=== PATIENT | female | born 1940 | race Caucasian/White ===

== ENCOUNTER → 2016-11-17 | Outpatient (CLI) | payer MEDICARE, OTHER ==
--- NOTE | 2016-11-17 15:55 | MRI ---
EXAM DESCRIPTION: MRI right shoulder without contrast CLINICAL HISTORY: Shoulder pain previous surgery for rotator cuff repair persistent limited range of motion difficulty lifting arm COMPARISON: None Available. TECHNIQUE: Noncontrast MR imaging right shoulder standard protocol FINDINGS: There is tendinosis of the subscapularis. There is medialization of the long head bicep without complete dislocation probable degree of bicep instability and transverse ligament injury. There is edema in this area. Moderate hypertrophic AC joint osteoarthrosis. Previous supraspinatus repair with metal artifact. There is thinning of the repaired supraspinatus with background tendinosis and granulation tissue indicating residual partial tear. No complete detachment or retraction however. There is mild subacromial and subdeltoid bursitis. Mild diffuse degenerative change of the superior labrum with fraying and minimal volume loss. Minimal inferior glenohumeral osteophyte formation as well. Tendinosis infraspinatus without detachment or retraction. No pronounced active adhesive capsulitis. There is generalized grade 1-2 fatty marbling of the rotator cuff muscle bellies symmetric. Type 3 acromial morphology. IMPRESSION: Thinning and fraying of the repaired supraspinatus tendon without complete detachment or retraction Subacromial and subdeltoid bursitis Medial biceps subluxation without complete dislocation suggesting bicep instability with edema along the transverse ligament Moderate hypertrophic AC joint osteoarthrosis with mild type 3 acromial morphology Chronic mild degenerative labral changes Generalized mild rotator cuff muscle fatty marbling without advanced asymmetric atrophy Electronically signed by: Osbaldo Farnsworth MD 11/17/2016 15:53
== END ==
LOC: MRI 12:39
PROVIDERS: ATTEND Nurse Practitioner Family
DX: M19.011 Primary osteoarthritis, right shoulder (principal); M75.51 Bursitis of right shoulder

== ENCOUNTER → 2016-11-25 | Outpatient (CLI) | payer MEDICARE, OTHER | LOC: GMAM 14:43 | PROVIDERS: ATTEND Family Medicine | DX: R11.2 Nausea with vomiting, unspecified (principal) ==

== ENCOUNTER → 2017-03-14 | Outpatient (CLI) | payer MEDICARE, OTHER ==
--- NOTE | 2017-03-14 10:07 | MAM ---
History: Well woman exam. Date of exam: 03/14/2017 Services provided: Bilateral full field digital screening mammography. CAD, the images were reviewed with R2 computer aided detection. FINDINGS: Glandular tissue is scattered glandular pattern. Comparison with 2013 exam. No dominant mass, architectural distortion or clustered microcalcification. IMPRESSION: Benign exam Recommendation: Routine annual mammography BIRAD CATEGORY: 2 BENIGN Electronically signed by: Xiomara Altamirano MD 03/14/2017 10:07 AM CDT
== END ==
LOC: MAMMO 09:20
PROVIDERS: ATTEND Family Medicine
DX: Z12.31 Encounter for screening mammogram for malignant neoplasm of breast (principal)

== ENCOUNTER → 2017-04-26 | Outpatient (CLI) | payer MEDICARE, OTHER | END | disposition home or self-care (01) | LOC: GMAM 14:22 | PROVIDERS: ATTEND Family Medicine | DX: R10.84 Generalized abdominal pain (principal) ==

== ENCOUNTER → 2017-05-02 | Outpatient (CLI) | payer MEDICARE, OTHER | END | disposition home or self-care (01) | LOC: LAB.O 12:09 | PROVIDERS: ATTEND Family Medicine | DX: R19.7 Diarrhea, unspecified (principal); R30.9 Painful micturition, unspecified ==

== ENCOUNTER → 2017-05-16 | Outpatient (CLI) | payer MEDICARE, OTHER | END | disposition home or self-care (01) | LOC: LAB.O 08:23 | PROVIDERS: ATTEND Nurse Practitioner Family | DX: K59.01 Slow transit constipation (principal) ==

== ENCOUNTER → 2017-05-19 | Outpatient (CLI) | payer MEDICARE, OTHER ==
--- NOTE | 2017-05-20 12:29 | CT ---
EXAM DESCRIPTION: Abdoment/Pelvis w/o Contrast CLINICAL HISTORY: CONSTIPATION COMPARISON: April 16, 2015 TECHNIQUE: CT of the abdomen and Pelvis was performed without IV contrast. This exam was performed according to our departmental dose-optimization program, which includes automated exposure control, adjustment of the mA and/or kV according to patient size and/or use of iterative reconstruction technique. FINDINGS: There is a 2 or 3 mm noncalcified nodule in the right lung base, stable from April,. The lung bases are otherwise unremarkable. No pneumoperitoneum, ascites or adenopathy. The gallbladder is surgically absent. There are mural calcifications in the abdominal aorta without aneurysm. The gallbladder is surgically absent. The liver, spleen, pancreas, adrenals and kidneys are unremarkable for noncontrast technique. No dilated small bowel loops. No bladder wall thickening. The uterus and ovaries are not identified, please correlate with surgical history. There is a small amount of stool and gas scattered throughout the colon. No colonic wall thickening or pericolonic inflammation. A surgical clip in the right lower quadrant is likely related to prior appendectomy. No concerning bone lesion. IMPRESSION: Negative exam. Small amount of stool and gas scattered throughout the colon, but no colonic wall thickening, pericolonic inflammation or other abnormality in the abdomen or pelvis to explain patient's symptoms. Electronically signed by: Jerel Luciano MD 05/20/2017 12:28 PM CDT Workstation: [id number]
== END ==
LOC: CT 10:07
PROVIDERS: ATTEND Nurse Practitioner Family
DX: K59.01 Slow transit constipation (principal)

== ENCOUNTER → 2017-05-23 | Outpatient (CLI) | payer MEDICARE, OTHER ==
--- NOTE | 2017-05-24 07:29 | US ---
EXAM DESCRIPTION: Thyroid CLINICAL HISTORY: 76 years Female, ABNORMAL LAB TEST FINDINGS WITHOUT DIAGNOSIS COMPARISON: None. FINDINGS: Thyroid sonography without prior studies for comparison demonstrates a normal size thyroid gland with the right lobe measuring 4.0 x 1.4 x 1.3 cm and the left lobe measuring 3.9 x 1.5 x 1.8 cm. The isthmus is 3 mm in thickness. On the right, there are three small thyroid nodules including a complex wider than tall 10 x 9 x 6 mm nodule in the upper pole anteriorly and laterally. Medially a hypoechoic wider than tall 7 mm nodule near the junction with the isthmus is noted and a third small probable cyst involving the lower pole posteriorly and medially 5 mm in size is present. On the left there are two small thyroid nodules including a hypoechoic slightly heterogeneous rounded 6 mm nodule in the mid thyroid posteriorly and slightly medially. There is also an isoechoic 11 x 8 x 6 mm nodule that is circumscribed and wider than tall involving the mid thyroid more anteriorly. There is questionably a third small hypoechoic nodule anteriorly in the lower pole measuring 7 x 7 x 4 mm and benign in appearance. IMPRESSION: Multinodular thyroid with multiple small centimeter and subcentimeter hypoechoic nodules and heterogeneous nodules bilaterally. The largest nodule on the left is in the mid thyroid and is 11 mm in maximal diameter and wider than tall and the largest nodule on the right is in the upper pole and complex measuring 10 mm in maximal diameter. One year sonographic follow-up to reconfirm stability of these nodules is recommended. Electronically signed by: Yusef Godfrey MD 05/24/2017 7:27 AM CDT
== END ==
LOC: US 11:06
PROVIDERS: ATTEND Family Medicine
DX: R68.89 Other general symptoms and signs (principal); E04.9 Nontoxic goiter, unspecified

== ENCOUNTER → 2017-06-20 | Outpatient (CLI) | payer MEDICARE, OTHER | END | disposition home or self-care (01) | LOC: GMAM 14:09 | PROVIDERS: ATTEND Family Medicine | DX: R10.9 Unspecified abdominal pain (principal); E04.2 Nontoxic multinodular goiter ==

== ENCOUNTER → 2017-07-06 | Outpatient (CLI) | payer MEDICARE, OTHER ==
--- NOTE | 2017-07-06 16:06 | US ---
PROCEDURE: Venous,Lower Extremity RT CLINICAL HISTORY and INDICATION: Right lower limb edema COMPARISON: None. TECHNIQUE: Bailey scale imaging with duplex interrogation of the right lower extremity venous system was performed and multiple static images were obtained. FINDINGS: Utilizing compression and augmentation, there is no deep venous thrombus in the common femoral, superficial femoral or popliteal veins. The posterior tibial and deep peroneal veins are patent and compressible. . The greater saphenous vein at the saphenofemoral junction is patent and compressible. There is no visualization of any subcutaneous fluid collections. There is no visualization of any fluid collections in the right popliteal fossa. There is no evidence of reactive or pathological lymphadenopathy in the evaluated right lower extremity. IMPRESSION: No deep venous thrombosis of the right lower extremity. Location of Interpretation: [id number] Electronically signed by: Johnson West MD 07/06/2017 4:05 PM CDT Workstation: [id number]
== END | disposition home or self-care (01) ==
LOC: US 13:50
PROVIDERS: ATTEND Family Medicine
DX: R60.0 Localized edema (principal)

== ENCOUNTER → 2017-07-25 | Outpatient (CLI) | payer MEDICARE, OTHER ==
--- NOTE | 2017-07-26 16:49 | CT ---
EXAM DESCRIPTION: Abdomen/Pelvis w/wo Contrast CLINICAL HISTORY: ABD PAIN COMPARISON: CT abdomen/pelvis 05/19/2017 and 04/16/2015 TECHNIQUE: CT of the abdomen and pelvis was performed before and after intravenous contrast. Multiple axial images and multiplanar reconstructions were generated. This exam was performed according to our departmental dose-optimization program, which includes automated exposure control, adjustment of the mA and/or kV according to patient size and/or use of iterative reconstruction technique. FINDINGS: Lung bases: The visualized lung bases are clear. Solid organs: Cholecystectomy clips are demonstrated. A 1.2 cm splenic hypodensity is unchanged since 2014. Numerous bilateral renal hypodensities measuring 5 mm or less are again demonstrated. The liver, pancreas, and adrenal glands are unremarkable. Gastrointestinal: The stomach, small intestine, and large intestine are normal. The right lower quadrant surgical clip is present, possibly from prior appendectomy. No free fluid or free air. Vascular: Moderate atherosclerotic plaque in the abdominal aorta and its major branches. Lymph nodes: No pathologically enlarged lymph nodes are present by CT size criteria. Musculoskeletal and soft tissues: The bones are demineralized predominantly along the endplates. Stable lucency in the L2 vertebral body, most likely a hemangioma. Urinary bladder and pelvic organs: The urinary bladder is normal. The uterus is surgically absent. IMPRESSION: 1. No acute abdominal or pelvic CT findings. 2. Moderate atherosclerosis. 3. Osteopenia. Recommend correlation with DEXA scan. 4. Other chronic findings as above. Electronically signed by: Yobani Presley MD 07/26/2017 4:48 PM CDT
== END | disposition home or self-care (01) ==
LOC: CT 08:04
PROVIDERS: ATTEND Family Medicine
DX: R10.9 Unspecified abdominal pain (principal); R60.0 Localized edema

== ENCOUNTER 2017-10-01 05:48 | Emergency (ER) | payer MEDICARE, OTHER ==
[2017-10-01 06:15] VITALS: TEMP 97.9
[2017-10-01] MEDS ORDERED: ONDANSETRON INJ 4 MG/2 ML VIAL IV ONE (06:22)
[2017-10-01] MEDS ORDERED: SODIUM CHLORIDE 0.9% 1000ML 1,000 ML IVS ONE (06:22)
--- NOTE | 2017-10-01 06:25 | ED.PDOC ---
History of Present Illness - General Information Source: patient, RN notes reviewed, Vital Signs reviewed Exam Limitations: no limitations - History of Present Illness Initial Comments: Patient presents to ER with c/o nausea and vomiting for 2 days. She is concerned because she has not been able to keep her blood pressure medications down. + HARRY, + subjective fever. She has had abdominal pain for the past 4 months , no worsening or new pain with current symptoms. She has had diarrhea for 4 months but changed her medications and that has improved. Abdominal Pain Onset Location: generalized abdomen Pain Radiation: no radiation Quality: mild Timing/Duration: days - 2 Improving Factors: nothing Worsening Factors: nothing Associated Symptoms: diarrhea, fever/chills, fatigue, headache, nausea/vomiting <Veronika Garcia - Last Filed: 10/01/17 06:53> <Manny Price - Last Filed: 10/01/17 08:37> - General Chief Complaint: GI Problem Stated Complaint: nausea vomiting Time Seen by Provider: 10/01/17 05:50 Review of Systems - Review of Systems Constitutional: States: chills, fever, malaise EENTM: States: other - Red throat Respiratory: States: no symptoms reported Cardiology: States: no symptoms reported Gastrointestinal/Abdominal: States: see HPI, abdominal pain, diarrhea, nausea, vomiting Musculoskeletal: States: no symptoms reported Skin: States: no symptoms reported Neurological: States: headache All other Systems: No Change from Baseline <Veronika Garcia - Last Filed: 10/01/17 06:53> Past Medical History (General) - Patient Medical History Hx Seizures: No Hx Stroke: Yes Hx Dementia: No Hx Asthma: No Hx of COPD: No Hx Cardiac Disorders: Yes Hx Congestive Heart Failure: Yes Hx Pacemaker: No Hx Hypertension: Yes Hx Thyroid Disease: Yes Hx Diabetes: Yes Hx Gastroesophageal Reflux: Yes Hx Renal Disease: No Hx Cancer: No Hx of HIV: No Hx Hepatitis C: No Hx MRSA: No Surgical History: cholecystectomy, Hysterectomy, other - Vaccination History Hx Tetanus, Diphtheria Vaccination: No Hx Influenza Vaccination: No Hx Pneumococcal Vaccination: No - Social History Hx Tobacco Use: No Hx Alcohol Use: No Hx Substance Use: No Hx Substance Use Treatment: No Hx Depression: No - Female History Patient is a Female of Child Bearing Age (10 -59 yrs old): No - Triage Comment ED Triage Comment: Pt states has N/V x 2 days--No diarrhea---Has sinus problems --sore throat <Veronika Garcia - Last Filed: 10/01/17 06:53> Family Medical History - Family History Mother Family History: Unknown Living Status: Hx Family Stroke: Yes Father Family History: Unknown Living Status: Hx Family Congestive Heart Failure: Yes Hx Cardiac Disease: Yes <Veronika Garcia - Last Filed: 10/01/17 06:53> Physical Exam - Physical Exam General Appearance: Alert, No apparent distress, Ill Appearing, Well Developed, Well Groomed, Well Nourished Eyes, Ears, Nose, Throat Exam: pharyngeal erythema - mild, PND, other - Dry tongue and mucous membranes Neck: non-tender, full range of motion, supple, normal inspection Respiratory: lungs clear, normal breath sounds, no respiratory distress, no accessory muscle use Cardiovascular/Chest: regular rate, rhythm, no gallop, no murmur Gastrointestinal/Abdominal: soft, no organomegaly, abnormal bowel sounds - hyperactive, tenderness - bilateral lower quadrants w/o guarding or rebound Rectal Exam: deferred Back Exam: normal inspection, no CVA tenderness Extremity: normal range of motion, normal inspection Neurologic: alert, normal mood/affect, oriented x 3 Skin Exam: normal color, warm/dry Comments: Vital Signs 10/01/17 06:06 Temperature 97.9 F Pulse Rate [Lt 76 arm] Respiratory 20 Rate Blood Pressure 161/85 [Lt arm] O2 Sat by Pulse 93 L Oximetry <Veronika Garcia - Last Filed: 10/01/17 06:53> Progress - Progress Progress: 10/01/17 06:[address] Price @ 07:00 - Results/Orders Results/Orders: Laboratory Tests 10/01/17 10/01/17 06:32 06:32 WBC 9.9 RBC 4.39 Hgb 13.4 Hct 38.7 MCV 88.0 MCH 30.5 MCHC 34.6 RDW 12.3 Plt Count 186 MPV 8.5 Absolute Neuts (auto) 8.50 H Absolute Lymphs (auto) 0.90 L Absolute Monos (auto) 0.40 Absolute Eos (auto) 0.10 Absolute Basos (auto) 0.00 Neutrophils % 85.8 H Lymphocytes % 8.9 L Monocytes % 4.3 Eosinophils % 0.7 L Basophils % 0.3 Sodium 135 Potassium 3.7 Chloride 100 L Carbon Dioxide 26 Anion Gap 12.7 BUN 12 Creatinine 0.66 BUN/Creatinine Ratio 18.2 Random Glucose 213 H Serum Osmolality 276.2 Calcium 9.1 Total Bilirubin 1.2 H AST 81 H ALT 108 H Alkaline Phosphatase 94 Serum Total Protein 6.9 Albumin 3.9 Globulin 3.0 Albumin/Globulin Ratio 1.3 <Veronika Garcia - Last Filed: 10/01/17 06:53> Departure <Veronika Garcia - Last Filed: 10/01/17 06:53> - Departure Diet: bland diet, diabetic diet Activity: increase activity as tolerated <Manny Price - Last Filed: 10/01/17 08:37> - Departure Clinical Impression: Gastroenteritis, Hepatitis Disposition: Discharge to Home or Self Care Condition: Good Departure Forms: ED Discharge - Pt. Copy, Patient Portal Self Enrollment Instructions: DI for Gastroesophageal Reflux Disease (GERD) Referrals: Yusef Price MD [Primary Care Provider] - 1-5 Days Prescriptions: Ondansetron [Zofran Odt] 4 mg PO Q4H PRN #10 tab PRN Reason: Vomiting Sucralfate Suspension [Carafate Suspension] 1 gm PO TID #30 gm Home Medications: Ambulatory Orders Aspirin [Aspirin Adult Low Dose] 81 mg PO DAILY 08/04/15 Coenzyme Q10 (Ubidecarenone) [Coq-10] 100 mg PO DAILY 08/04/15 Fesoterodine Fumarate [Toviaz] 4 mg PO DAILY 08/04/15 Furosemide [Lasix] 20 mg PO DAILY 08/04/15 [id number]-Yfv C- [Glucosamine 1500 Complex] 1 cap PO BID 08/04/15 Krill Oil [Krill Oil [place]-3] 1 cap PO DAILY 08/04/15 Losartan Potassium [Cozaar] 100 mg PO BEDTIME 08/04/15 Melatonin 3 mg PO PRN 08/04/15 Memantine [Namenda] 20 mg PO DAILY 08/04/15 Metformin HCl 500 mg PO BID 08/04/15 Metoprolol Succinate [Metoprolol Succinate ER] 25 mg PO DAILY 08/04/15 Multiple Vitamins W/ Minerals [One Daily For Women] 1 tab PO DAILY 08/04/15 Potassium Chloride [Potassium Chloride ER] 20 meq PO DAILY 08/04/15 Vitamin E [E-400] 400 unit PO DAILY 08/04/15 Fesoterodine Fumarate [Toviaz] 4 mg PO DAILY 10/01/17 Omeprazole 20 mg PO DAILY 10/01/17 Ondansetron [Zofran Odt] 4 mg PO Q4H PRN #10 tab 10/01/17 Pravastatin Sodium 20 mg PO DAILY 10/01/17 Red Yeast Rice Extract [Red Yeast Rice] 600 mg PO DAILY 10/01/17 Sucralfate Suspension [Carafate Suspension] 1 gm PO TID #30 gm 10/01/17 Additional Instructions: The patient is a 76-year-old female presenting to the emergency room secondary to intestinal symptoms worse in the most recent history but extending back at least 4 months. She does have a mild elevation of her liver enzymes indicating a mild hepatitis. Several medications may be contributing including her pravastatin. I would encourage her to hold her supplemental medications as well as the pravastatin for at least the next week. She needs to have her liver function test rechecked in 7-14 days. She is to follow up with her primary care doctor in 3 or 4 days just to be checked up on again. She will be written for Zofran for as needed use to control any nausea and vomiting as well as Carafate suspension for 3 times a day use for any gastritis. She is to keep herself hydrated and maintain a bland diet. She had a CT scan of the abdomen a few months ago that was reassuring. Lab work otherwise looks reassuring at this point in time. it may yet be a few days before she feels significantly better. ER warnings were given for any significant worsening.
[2017-10-01] MEDS ORDERED: HYDROcodone 5MG/APAP 325MG 1 EA TAB PO ONE (07:57)
[2017-10-01] MEDS ORDERED: SUCRALFATE 1 GM/10 ML 1 GM UD PO ONE (08:06)
[2017-10-01] MEDS ORDERED: PROMETHAZINE HCL INJ 12.5 MG in SODIUM CHLORIDE 0.9% 50ML 50 ML IVPB ONE (08:06)
[2017-10-01] MEDS ORDERED: PROMETHAZINE HCL INJ 25 MG/ML VIAL ONE (08:08)
[2017-10-01] MEDS ORDERED: SODIUM CHLORIDE 0.9% 50ML 50 ML ONE (08:08)
[2017-10-01 09:12] VITALS: BP 144/87; O2SAT 95
== END 2017-10-01 09:16 | disposition home or self-care (01) ==
LOC: ER 05:48
DX: K52.9 Noninfective gastroenteritis and colitis, unspecified (principal); K75.9 Inflammatory liver disease, unspecified; I11.0 Hypertensive heart disease with heart failure; I50.9 Heart failure, unspecified; E07.9 Disorder of thyroid, unspecified; K21.9 Gastro-esophageal reflux disease without esophagitis; E11.9 Type 2 diabetes mellitus without complications; Z79.899 Other long term (current) drug therapy; Z79.82 Long term (current) use of aspirin
CPT/HCPCS: 36415; 80053; 85025; A4216; J2405; J2550; J7030

== ENCOUNTER → 2017-10-03 | Outpatient (CLI) | payer MEDICARE, OTHER | END | disposition home or self-care (01) | LOC: GMAM 14:49 | PROVIDERS: ATTEND Family Medicine | DX: R10.84 Generalized abdominal pain (principal) ==

== ENCOUNTER → 2018-09-10 | Outpatient (CLI) | payer MEDICARE, OTHER | LOC: GMAM 14:09 | PROVIDERS: ATTEND Family Medicine | DX: K29.60 Other gastritis without bleeding (principal); R10.84 Generalized abdominal pain ==

== ENCOUNTER → 2018-11-08 | Outpatient (CLI) | payer MEDICARE, OTHER ==
--- NOTE | 2018-11-08 14:43 | MAM ---
EXAM DESCRIPTION: 3D Diagnostic, Bilateral: Digital Mammography CLINICAL HISTORY: 78 yearsFemaleSCREENDIAGNOSTIC . Black nipple discharge. Sister with breast cancer. Remote family history of breast cancer. Hysterectomy 47 years ago. Childbirth. Hormone replacement more than 5 years ago. Benign left breast biopsy. Prior right breast cyst aspiration. Lifetime risk of developing breast cancer (Tyrer-Cuzick model) percentage is 6.7. COMPARISON: 2-D digital screening bilateral mammography 03/14/2017. TECHNIQUE: Bilateral CC LM MLO projection full-field images, digital mammographic tomosynthesis technique. Bilateral 2-D digital full-field MLO images. CAD not utilized. FINDINGS: The breast parenchymal density pattern is: Scattered areas of fibroglandular density. No skin thickening or nipple retraction bilateral vascular calcifications. Bilateral coarse and solitary microcalcifications and bilateral groups of microcalcifications. Right axillary lymph nodes. Focal asymmetry in the upper outer quadrant of the anterior third of the right breast at 2:00 position, approximately 4 cm from the nipple. No new focal, stellate mass or density, focal asymmetry , and no suspicious microcalcifications left breast. Ultrasound: Scanning of the retroareolar left breast. Mixture of fibroglandular and fatty echotextures. Small anechoic cyst less than 5 mm diameter with circumscribed margins and posterior enhancement features. Nonvascular. No dominant solid mass, dilated ducts, abnormal vascularity, large calcifications, or parenchymal edema. Scanning of the 2:00 position of the left breast, 4 cm from the nipple. Fibroglandular tissues surrounded by fatty echotexture. No dominant solid mass or distinct cyst. No large calcifications or parenchymal edema. No overlying skin changes. Normal vascularity. IMPRESSION: BI-RADS CATEGORY: 3 - PROBABLY BENIGN. Management: Short interval (6-month) follow-up left breast diagnostic digital mammography and targeted left breast ultrasound. With current clinical findings of dark discharge, and strong family history, bilateral breast MRI without and with gadolinium IV contrast should also be considered. The FINDINGS and the FOLLOW-UP plan were reviewed in person with the patient after the examination. Written communication explaining the IMPRESSION and FOLLOW-UP will be mailed to the patient and referring care provider. . CRITICAL COMMUNICATION: The critical value was discussed directly by phone with Dr. Vivian Price at approximately 1440 hours, on November 08, 2018. Electronically signed by: Dilip Gamble MD 11/08/2018 2:42 PM TOP LIFT COMPRESSER
--- NOTE | 2018-11-08 14:44 | US ---
EXAM DESCRIPTION: Breast,Left: Ultrasound CLINICAL HISTORY: 78 yearsFemaleDISCHARGE. Black color discharge spontaneously and also expressed. Sister with breast cancer. COMPARISON: Digital diagnostic tomosynthesis bilateral breasts on this visit. Bilateral 2-D digital mammographic evaluation 03/14/2017. TECHNIQUE: Transcutaneous scanning of the left breast utilizing yancey-scale and Doppler modes. Scanning performed by the technology manager and Dr. Gamble. FINDINGS: Scanning of the retroareolar left breast. Mixture of fibroglandular and fatty echotextures. Small anechoic cyst less than 5 mm diameter with circumscribed margins and posterior enhancement features. Nonvascular. No dominant solid mass, dilated ducts, abnormal vascularity, large calcifications, or parenchymal edema. Scanning of the 2:00 position of the left breast, 4 cm from the nipple. Fibroglandular tissues surrounded by fatty echotexture. No dominant solid mass or distinct cyst. No large calcifications or parenchymal edema. No overlying skin changes. Normal vascularity. IMPRESSION: 1. Bi-Rads Category 3: Probably Benign Findings. 2. Please refer to bilateral diagnostic digital breast tomosynthesis examination and report on this visit. The FINDINGS and the FOLLOW-UP plan were reviewed in person with the patient after the examination. Written communication explaining the IMPRESSION and FOLLOW-UP will be mailed to the patient and referring care provider. Critical communication The critical value was discussed directly by phone with Dr. Vivian Price at approximately 1440 hours, on November 08, 2018. Electronically signed by: Dilip Gamble MD 11/08/2018 2:43 PM TECHNICAL ARTIST
== END ==
LOC: MAMMO 12:59
PROVIDERS: ATTEND Family Medicine
DX: N64.89 Other specified disorders of breast (principal)
CPT/HCPCS: 76641; 77066; G0279

== ENCOUNTER → 2018-12-06 | Outpatient (CLI) | payer MEDICARE, OTHER ==
--- NOTE | 2018-12-06 13:48 | CT ---
EXAM DESCRIPTION: Lower Extremity CLINICAL HISTORY: 78 years Female, PAIN IN LEFT KNEE COMPARISON: None. TECHNIQUE: Contiguous 2.5 mm axial images were obtained through the left knee joint. Reformatted coronal and sagittal as well as 3-D reconstruction images were obtained. FINDINGS: Home Care Manager image demonstrates postsurgical changes consistent with left total knee arthroplasty with intact hardware. Moderate to severe right knee joint osteoarthritic changes with the severe medial compartment joint space narrowing is also noted on the tank tester image. CT scan through the left knee joint demonstrates postsurgical changes consistent with prior total knee replacement with intact hardware. No evidence of loosening or failure. No acute fracture or dislocation identified, although the detail evaluation is limited secondary to streak artifact from the metallic hardware. The overlying soft tissues appear grossly unremarkable. IMPRESSION: 1. No acute fracture or dislocation. 2. Postsurgical changes consistent with prior left total knee arthroplasty with intact hardware. This exam was performed according to our departmental dose-optimization program, which includes automated exposure control, adjustment of the mA and/or kV according to patient size and/or use of iterative reconstruction technique. Electronically signed by: Cordell oCllins MD 12/06/2018 1:46 PM [facility]
== END ==
LOC: CT 11:22
PROVIDERS: ATTEND Nurse Practitioner Family
DX: M25.562 Pain in left knee (principal); Z98.890 Other specified postprocedural states

== ENCOUNTER → 2018-12-20 | Outpatient (CLI) | payer MEDICARE, OTHER ==
--- NOTE | 2018-12-20 09:43 | RAD ---
EXAM DESCRIPTION: Pelvis CLINICAL HISTORY: PAIN IN LEFT HIP COMPARISON: CT the abdomen pelvis dated 25 July 2017 TECHNIQUE: AP pelvis FINDINGS: A surgical clip is observed in the right lower quadrant. Phleboliths are observed in the pelvis. Degenerative changes are seen in the pubic symphysis. No fracturing is detected. Mild degenerative changes are observed in the lower lumbar spine. The proximal femurs are intact. No fracturing is detected. IMPRESSION: Mild degenerative changes are observed in the pelvis. No fracturing or significant hip arthritis is detected. Electronically signed by: Antonio Lr MD 12/20/2018 9:41 AM [facility]
== END ==
LOC: RAD 08:24
PROVIDERS: ATTEND Orthopaedic Surgery
DX: M25.552 Pain in left hip (principal)

== ENCOUNTER 2018-12-29 17:43 | Emergency (ER) | payer MEDICARE, OTHER ==
--- NOTE | 2018-12-29 18:45 | RAD ---
EXAM DESCRIPTION: Chest,2 Views CLINICAL HISTORY: cough, right sided cp COMPARISON: April 14, 2016 FINDINGS: Cardiomediastinal silhouette is unchanged compared with the prior exam. Aorta is tortuous. Patient is status post median sternotomy. There is no focal parenchymal or pleural disease. There is no acute osseous process visualized. IMPRESSION: No evidence of acute cardiopulmonary disease. Electronically signed by: Dilip Bee MD 12/29/2018 6:42 PM INSTRUMENTATION INSTRUCTOR
[2018-12-29] MEDS ORDERED: AMOXICILLIN & POT CLAVULANATE 875 MG TAB PO ONE (18:50)
[2018-12-29] MEDS ORDERED: predniSONE 20 MG TAB PO ONE (18:50)
--- NOTE | 2018-12-29 18:56 | ED.PDOC ---
History of Present Illness - General Chief Complaint: Respiratory Problem Stated Complaint: pt complains of sore throat and productive cough Time Seen by Provider: 12/29/18 17:44 Source: patient Exam Limitations: no limitations - History of Present Illness Initial Comments: The patient is a 78-year-old female presenting to the emergency room secondary to symptoms of persistent cough for the last 2 weeks along with some right lower lung field pain with taking a deep breath and with coughing. Cough is minimally productive. She reports that it started a couple weeks ago when she was exposed to some chemical substance. She has been taking ihog-sug-jsdmfsy medications. No fevers. No real sore throat. Mild chronic runny nose. No hypoxia. No respiratory distress. Timing/Duration: unsure Severity: mild Improving Factors: nothing Worsening Factors: nothing Associated Symptoms: cough Allergies/Adverse Reactions: Allergies Caffeine [From Norges[employer]] Allergy (Verified 12/29/18 18:16) Orphenadrine [From [employer]orges[employer]] Allergy (Verified 12/29/18 18:16) Streptomycin Allergy (Verified 12/29/18 18:16) Home Medications: Ambulatory Orders Aspirin [Aspirin Adult Low Dose] 81 mg PO DAILY 08/04/15 Coenzyme Q10 (Ubidecarenone) [Coq-10] 100 mg PO DAILY 08/04/15 Furosemide [Lasix] 20 mg PO DAILY 08/04/15 Zakyosortea-Dhqpdspqkcy-Ysd C- [Glucosamine 1500 Complex] 1 cap PO BID 08/04/15 Krill Oil [Krill Oil [place]-3] 1 cap PO DAILY 08/04/15 Losartan Potassium [Cozaar] 25 mg PO BID 08/04/15 Melatonin 3 mg PO BEDTIME 08/04/15 Memantine [Namenda] 10 mg PO DAILY 08/04/15 Metformin HCl 500 mg PO BID 08/04/15 Metoprolol Succinate [Metoprolol Succinate ER] 25 mg PO BID 08/04/15 Multiple Vitamins W/ Minerals [One Daily For Women] 1 tab PO DAILY 08/04/15 Potassium Chloride [Potassium Chloride ER] 20 meq PO DAILY 08/04/15 Vitamin E [E-400] 400 unit PO DAILY 08/04/15 Acetaminophen [Acetaminophen/Extra Stren] 500 mg PO BEDTIME 12/29/18 Amoxicillin & Pot Clavulanate [Augmentin Tab] 875 mg PO BID #14 tab 12/29/18 Ascorbic Acid [Vitamin C] 500 mg PO DAILY 12/29/18 Mirabegron [Myrbetriq] 50 mg PO DAILY 12/29/18 Tramadol HCl 50 mg PO Q8HR PRN #20 tab 12/29/18 Review of Systems - Review of Systems Constitutional: States: no symptoms reported EENTM: States: nose congestion Respiratory: States: cough Cardiology: States: chest pain - pleuritic on the right side Gastrointestinal/Abdominal: States: no symptoms reported Genitourinary: States: no symptoms reported Musculoskeletal: States: back pain - posterior chest with taking deep breaths Skin: States: no symptoms reported Neurological: States: no symptoms reported Endocrine: States: no symptoms reported All other Systems: No Change from Baseline Past Medical History (General) - Patient Medical History Hx Seizures: No Hx Stroke: Yes Hx Dementia: No Hx Asthma: No Hx of COPD: No Hx Cardiac Disorders: Yes - Open heart (anterior artery cleaned, 2 valves repai red) Hx Congestive Heart Failure: No Hx Pacemaker: No Hx Hypertension: Yes Hx Thyroid Disease: Yes - Nodular Hx Diabetes: Yes Hx Gastroesophageal Reflux: Yes Hx Renal Disease: No Hx Cancer: Yes - 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 Hx of HIV: No Hx Hepatitis C: No Hx MRSA: No Surgical History: cholecystectomy, tonsillectomy, Hysterectomy, other - Vaccination History Hx Tetanus, Diphtheria Vaccination: Yes Hx Influenza Vaccination: Yes Hx Pneumococcal Vaccination: No Immunizations Up to Date: Yes - Social History Hx Tobacco Use: No Hx Alcohol Use: No Hx Substance Use: No Hx Substance Use Treatment: No Hx Depression: No - Female History Patient is a Female of Child Bearing Age (10 -59 yrs old): No Family Medical History - Family History Mother Family History: Unknown Living Status: Hx Family Stroke: Yes Father Family History: Unknown Living Status: Hx Family Congestive Heart Failure: Yes Hx Cardiac Disease: Yes Physical Exam - Physical Exam General Appearance: Alert, Comfortable, No apparent distress Eye Exam: bilateral normal Ears, Nose, Throat: hearing grossly normal, normal pharynx, nasal congestion Neck: full range of motion, supple Respiratory: no respiratory distress, no accessory muscle use, rales - to the right lower lobe, rhonchi - very mild and proximal Cardiovascular/Chest: normal peripheral pulses, no edema, other - regular rate Peripheral Pulses: radial,right: 2+, radial,left: 2+ Gastrointestinal/Abdominal: non tender, soft Rectal Exam: deferred Back Exam: muscle spasm - mild muscle spasm to the right of approximately T9 her T10 with taking a deep breath and with palpation Extremity: non-tender, normal inspection, no pedal edema, normal capillary refill 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 She has probably had a mild either allergic or chemical bronchitis for the last couple of weeks. For that she is receiving 1 dose of oral prednisone. No more steroids are being used secondary to diabetes. The patient either has some atelectasis or a mild pneumonia forming at the right lung base based on physical exam, for which she will be receiving Augmentin twice daily for 7 days. She needs to take big deep breaths and make herself cough. Additionally for the back pain and pleurisy the patient will be written for some tramadol for as needed use and she can additionally take 400 mg of ibuprofen 3 times daily with food to help reduce symptoms. She needs to keep herself well hydrated. Follow back up with primary care doctor next week. ER warnings for any worsening. Departure - Departure Clinical Impression: Bronchitis, Pleurisy Pneumonia Qualifiers: Pneumonia type: due to unspecified organism Laterality: right Lung location: lower lobe of lung Qualified Code(s): J18.1 - Lobar pneumonia, unspecified organism Disposition: Discharge to Home or Self Care Condition: Fair Departure Forms: ED Discharge - Pt. Copy, Patient Portal Self Enrollment Instructions: DI for Pneumonia -- Adult Diet: diabetic diet Activity: increase activity as tolerated Referrals: Yusef Price MD [Primary Care Provider] - 1-5 Days Prescriptions: Tramadol HCl 50 mg PO Q8HR PRN #20 tab PRN Reason: Moderate To Severe Pain Amoxicillin & Pot Clavulanate [Augmentin Tab] 875 mg PO BID #14 tab Home Medications: Ambulatory Orders Aspirin [Aspirin Adult Low Dose] 81 mg PO DAILY 08/04/15 Coenzyme Q10 (Ubidecarenone) [Coq-10] 100 mg PO DAILY 08/04/15 Furosemide [Lasix] 20 mg PO DAILY 08/04/15 Bvmuwxfqtwx-Wjcbtrtotzu-Kpn C- [Glucosamine 1500 Complex] 1 cap PO BID 08/04/15 Krill Oil [Krill Oil [place]-3] 1 cap PO DAILY 08/04/15 Losartan Potassium [Cozaar] 25 mg PO BID 08/04/15 Melatonin 3 mg PO BEDTIME 08/04/15 Memantine [Namenda] 10 mg PO DAILY 08/04/15 Metformin HCl 500 mg PO BID 08/04/15 Metoprolol Succinate [Metoprolol Succinate ER] 25 mg PO BID 08/04/15 Multiple Vitamins W/ Minerals [One Daily For Women] 1 tab PO DAILY 08/04/15 Potassium Chloride [Potassium Chloride ER] 20 meq PO DAILY 08/04/15 Vitamin E [E-400] 400 unit PO DAILY 08/04/15 Acetaminophen [Acetaminophen/Extra Stren] 500 mg PO BEDTIME 12/29/18 Amoxicillin & Pot Clavulanate [Augmentin Tab] 875 mg PO BID #14 tab 12/29/18 Ascorbic Acid [Vitamin C] 500 mg PO DAILY 12/29/18 Mirabegron [Myrbetriq] 50 mg PO DAILY 12/29/18 Tramadol HCl 50 mg PO Q8HR PRN #20 tab 12/29/18 Additional Instructions: the patient is an 78-year-old female presenting to the emergency room secondary to cough and right-sided chest and back pain. She has probably had a mild either allergic or chemical bronchitis for the last couple of weeks. For that she is receiving 1 dose of oral prednisone. No more steroids are being used secondary to diabetes. The patient either has some atelectasis or a mild pneumonia forming at the right lung base based on physical exam, for which she will be receiving Augmentin twice daily for 7 days. She needs to take big deep breaths and make herself cough. Additionally for the back pain and pleurisy the patient will be written for some tramadol for as needed use and she can additionally take 400 mg of ibuprofen 3 times daily with food to help reduce symptoms. She needs to keep herself well hydrated. Follow back up with primary care doctor next week. ER warnings for any worsening.
[2018-12-29 19:09] VITALS: BP 174/105; TEMP 98.2; O2SAT 94
== END 2018-12-29 19:09 | disposition home or self-care (01) ==
LOC: ER 17:43
DX: J18.9 Pneumonia, unspecified organism (principal); J40 Bronchitis, not specified as acute or chronic; I51.9 Heart disease, unspecified; I10 Essential (primary) hypertension; E07.9 Disorder of thyroid, unspecified; E11.9 Type 2 diabetes mellitus without complications; Z86.73 Personal history of transient ischemic attack (TIA), and cerebral infarction without residual deficits; Z79.84 Long term (current) use of oral hypoglycemic drugs; Z79.82 Long term (current) use of aspirin; Z79.899 Other long term (current) drug therapy; Z88.8 Allergy status to other drugs, medicaments and biological substances
CPT/HCPCS: 71046; J7512

== ENCOUNTER → 2019-02-01 | Outpatient (CLI) | payer MEDICARE, OTHER ==
--- NOTE | 2019-02-01 17:24 | US ---
US THYROID CLINICAL STATEMENT: MULTINODULAR GOITER. No palpable mass. No prior thyroid surgery or therapy. COMPARISON: None TECHNIQUE: Transcutaneous scanning, grayscale and Doppler modes. FINDINGS: Size right thyroid lobe: 3.8 x 2.2 x 1.3 cm Size left thyroid lobe: 5.3 x 1.7 x 1.6 cm Size isthmus: 0.21 cm Estimated total number of nodules greater than or equal to 1 cm: 4 Nodule 1: Size: 2.1 x 1.3 x 1.2 cm Location: Right Mid Composition: solid or almost completely solid: 2 points Echogenicity: hypoechoic: 2 points Shape: wider than tall: 0 points Margins: smooth: 0 points Echogenic foci: none: 0 points ACR Total Points: 4; ACR TI-RADS risk category: TR4 - moderately suspicious nodule. Nodule 2: Size: 1.2 x 0.8 x 1.0 cm Location: Left Mid Composition: solid or almost completely solid: 2 points Echogenicity: hypoechoic: 2 points Shape: wider than tall: 0 points Margins: smooth: 0 points Echogenic foci: none: 0 points ACR Total Points: 4; ACR TI-RADS risk category: TR4 - moderately suspicious nodule. Nodule 3: Size: 1.2 x 0.6 x 0.6 cm Location: Left Lower Composition: solid or almost completely solid: 2 points Echogenicity: hypoechoic: 2 points Shape: wider than tall: 0 points Margins: smooth: 0 points Echogenic foci: none: 0 points ACR Total Points: 4; ACR TI-RADS risk category: TR4 - moderately suspicious nodule. Nodule 4: Size: 1.0 x 0.9 x 0.7 cm Location: Right Upper Composition: solid or almost completely solid: 2 points Echogenicity: hypoechoic: 2 points Shape: wider than tall: 0 points Margins: smooth: 0 points Echogenic foci: none: 0 points ACR Total Points: 4; ACR TI-RADS risk category: TR4 - moderately suspicious nodule. The gland is heterogeneous. Multiple other nodules are seen but were smaller. In the soft tissues around the thyroid gland, no distinct cyst or dominant solid mass. No parenchymal edema or large calcifications. No overlying skin changes. Normal vascularity. IMPRESSION: 1. Nodule 1: ACR TI-RADS 2017 Category TR4. Recommend: Ultrasound-guided fine needle aspiration. Recommendations based upon [facility] Best Practice recommendations and ACR TI-RADS 2017 guidelines. Please see below*. 2. Nodule 2: ACR TI-RADS 2017 Category TR4. Recommend: Follow-up ultrasound in 1 year. 3. Nodule 3: ACR TI-RADS 2017 Category TR4. Recommend: Follow-up ultrasound in 1 year. 4. Nodule 4: ACR TI-RADS 2017 Category TR4. Recommend: Follow-up ultrasound in 1 year. Soft tissues around the thyroid gland are unremarkable. *ACR TI-RADS 2017 Recommendations: TR1: No FNA or follow up TR2: No FNA or follow up TR3: FNA if >/= 2.5 cm, follow up if 1.5 - 2.4 cm in 1, 3, and 5 years TR4: FNA if >/= 1.5 cm, follow up if 1.0 - 1.4 cm in 1, 2, 3, and 5 years TR5: FNA if >/= 1.0 cm, follow up if 0.5 - 0.9 cm every year for 5 years ACR TI-RADS recommends that no more than two nodules with the highest ACR TI-RADS total point should be biopsied and no more than four nodules should be followed. These recommendations do not apply to patients with increased risk for thyroid cancer or patients with symptomatic thyroid disease. Electronically signed by: Dilip Gamble MD 02/01/2019 5:21 PM CDT
== END ==
LOC: US 09:54
PROVIDERS: ATTEND Family Medicine
DX: E04.2 Nontoxic multinodular goiter (principal)

== ENCOUNTER → 2019-02-20 | Outpatient (CLI) | payer MEDICARE, OTHER ==
--- NOTE | 2019-02-21 10:42 | CT ---
EXAM DESCRIPTION: Abdomen/Pelvis w/wo Contrast: Computed Tomography. CLINICAL HISTORY: Left lower quadrant abdominal tenderness COMPARISON: Abdominal pelvic CT scan without and with IV contrast 07/25/2017. TECHNIQUE: Spiral-axial scans at 5 x 5 mm intervals through the abdomen and pelvis before and after 100 mL nonionic IV contrast. Water-soluble oral contrast. Coronal and sagittal 2.0 mm reconstructions. 5 mm Delayed helical-axial scans, liver through the pubic symphysis. No adverse reactions. Total Exam DLP 2786.24 mGy - cm. This exam was performed according to our departmental CT dose-optimization program which includes automated exposure control, adjustment of the mA and/or kV according to patient size and/or use of iterative reconstruction technique; to reduce radiation dose to as low as reasonably achievable (ALARA). FINDINGS: Lung bases and pleura: Bilateral pleural-parenchymal scarring in the bases. Coronary artery stents and calcifications. Liver, Stomach, Spleen, Adrenal Glands: Cyst versus hemangioma approximately 1 cm in the lateral spleen stable. Stomach and solid organs are otherwise negative. Pancreas, Gallbladder, Ducts: Surgical clips in the gallbladder fossa with no fluid. Duct not significantly dilated. Pancreas negative. Kidneys and Ureters: Unremarkable. Mesentery: No free air or free fluid. No fatty stranding. Aorta: Moderate atherosclerotic calcification minimal luminal narrowing. Ectasia and tortuosity of the proximal common iliac arteries. Small Bowel: Contains oral contrast. Normal caliber. Terminal Ileum/Cecum: Contains oral contrast and normal caliber. No appendix seen. Surgical clips. Normal fatty density. Colon: Oral contrast reaches the proximal sigmoid. Moderate stool burden. No significant air-fluid levels. Pelvic Organs: Vaginal cuff unremarkable with no fluid in the cul-de-sac. No radiodense stones in the urinary bladder. Spine and Bony Pelvis: Minimal narrowing of the lateral hip joints with down curving of the superior lateral acetabula. Mild arthrosis in the pubic symphysis and SI joints. Spondylosis multiple levels of the lumbar spine with scoliosis and spondylosis at multiple levels in the included thoracic spine especially T10-11 with bilateral foraminal stenosis. Abdominal Wall/Back Soft Tissues: Electrodes in the abdominal wall and cardiac wall with sternotomy. No definite hernia. IMPRESSION: No small bowel or colonic obstruction. Scattered gas in the small bowel and gas and fecal material in the colon with moderate constipation. No free air or free fluid. No significant enlargement of the abdominal organs. No significant change since the prior study. Advanced lower thoracic and lumbar spondylosis. Bilateral hip arthrosis with hypertrophy superior lateral acetabula causing possible femoral head over coverage and cam-type femoral acetabular impingement. Stable since the prior study. Electronically signed by: Dilip Gamble MD 02/21/2019 10:39 AM CDT
== END ==
LOC: LAB.O 10:35
PROVIDERS: ATTEND Surgery
DX: K59.00 Constipation, unspecified (principal); M47.894 Other spondylosis, thoracic region; M47.896 Other spondylosis, lumbar region; M16.0 Bilateral primary osteoarthritis of hip

== ENCOUNTER → 2019-04-15 | Outpatient (CLI) | payer MEDICARE, OTHER ==
--- NOTE | 2019-04-16 08:07 | RAD ---
EXAM DESCRIPTION: Abdomen, 2 radiographs CLINICAL HISTORY: Left lower quadrant abdomen pain FINDINGS/ IMPRESSION: Scattered bowel gas without evidence of mechanical bowel obstruction. No diagnostic focal inflammatory process. No pneumatosis or free intraperitoneal air No organomegaly or abdominal mass lesion. Previous cholecystectomy Visualized lungs are clear Electronically signed by: Yusef Bedoya MD 04/16/2019 8:04 AM CDT
== END ==
LOC: RAD 11:55
PROVIDERS: ATTEND Surgery
DX: R10.814 Left lower quadrant abdominal tenderness (principal); Z90.49 Acquired absence of other specified parts of digestive tract

== ENCOUNTER → 2019-04-19 | Outpatient (CLI) | payer MEDICARE, OTHER ==
--- NOTE | 2019-04-22 10:41 | US ---
Superficial sonogram of the abdomen Indication: LUQ ABD PAIN Comparison: CT February 20, 2019. Impression: At the palpable area of concern within the subcutaneous fat of the left lower quadrant there are several subcutaneous slightly hyperechoic ovoid nodules measuring up to 2.3 cm likely reflecting subcutaneous lipomas. Targeted CT of the abdomen/pelvis can confirm. Electronically signed by: Abraham Landeros MD 04/22/2019 10:39 AM CDT
== END ==
LOC: US 09:00
PROVIDERS: ATTEND Surgery
DX: R10.814 Left lower quadrant abdominal tenderness (principal); R22.2 Localized swelling, mass and lump, trunk

== ENCOUNTER 2019-05-13 05:45 | Day surgery (SDC) | payer MEDICARE, OTHER ==
--- NOTE | 2019-05-07 13:53 | RAD ---
EXAM DESCRIPTION: Chest,2 Views CLINICAL HISTORY: 78 years Female, pre op COMPARISON: 29 December 2018 TECHNIQUE: PA/lateral FINDINGS: The patient is poststernotomy. The lungs are clear. The heart is within range of normal. Orthopedic anchors observed in the right shoulder. No pleural fluid is seen. IMPRESSION: The patient is poststernotomy. The exam is otherwise unremarkable. Electronically signed by: Antonio Lr MD 05/07/2019 1:51 PM CDT
[2019-05-13] MEDS ORDERED: SODIUM CHL 0.9% 100ML MINI-BAG 100 ML IVPB ONE (06:59)
[2019-05-13] MEDS ORDERED: ceFAZolin SODIUM 1 GM VIAL ONE (07:00)
[2019-05-13] MEDS ORDERED: LACTATED RINGERS 1,000 ML ONE (07:00)
[2019-05-13] MEDS ORDERED: MIDAZOLAM INJ 2 MG/2 ML VIAL ONE (08:22)
[2019-05-13] MEDS ORDERED: KETAMINE HCL 100 MG/ML VIAL ONE (08:22)
[2019-05-13] MEDS ORDERED: fentaNYL CITRATE INJ 50 MCG/ML AMP ONE (08:22)
[2019-05-13] MEDS ORDERED: SODIUM BICARBONATE VIAL 50 MEQ/50 ML VIAL ONE (08:30)
[2019-05-13] MEDS ORDERED: LIDOCAINE 1% 50 ML VIAL INJ ONE (08:30)
[2019-05-13] MEDS ORDERED: SODIUM CHLORIDE 0.9% 50 ML VIAL INJ ONE (10:00)
[2019-05-13] MEDS ORDERED: PROPOFOL 200 MG/20 ML VIAL IV ONE (10:00)
--- NOTE | 2019-05-13 10:44 | OP ---
DATE OF PROCEDURE: date PREOPERATIVE DIAGNOSIS: 1. Tender subcutaneous mass, left lower quadrant, abdominal wall. POSTOPERATIVE DIAGNOSIS: 1. Tender subcutaneous mass, left lower quadrant, abdominal wall, consistent with lipoma x2. PROCEDURE: SURGEON: Caleb Almeida MD. SALES OFFICE ADMINISTRATOR: None. ANESTHESIA: Local infiltration of 1% lidocaine with bicarb and IV sedation by Anesthesia. INDICATION: The patient is an 78-year-old female who has had a Pfannenstiel incision previous and repair of a hernia on the left side of this Pfannenstiel incision. She complains of a tender mass in the left lower quadrant. CT scan ruled out diverticulitis or other active ongoing process and there was no hernia identified. There was, however, at least one tender mass in the left lower quadrant. Ultrasound revealed this to be consistent with lipomas. She was brought to the Surgical Suite today for excision of same after the risks, benefits and alternatives to the procedure were discussed and accepted. FINDINGS: There were two, one discrete lipoma that was just under 3 cm in greatest diameter. There was also an area that came out piecemeal lateral to this. Both were sent for pathological evaluation. PROCEDURE: The patient was brought to the Surgical Suite and placed in supine position. She was prepped and draped in the usual sterile manner. Surgical time-out was taken. She was sedated and a transverse incision was made over the tender mass in the left lower quadrant, first with local infiltration of anesthesia and then with a 15 blade. Dissection was carried down through the skin into the subcutaneous tissue using electrocautery. The first lesion was identified easily and dissected free with blunt dissection and some electrocautery and was removed from the field. Palpation of the abdominal wall and subcutaneous tissue lateral to this revealed several areas of nodularity and these were dissected free using blunt dissection and electrocautery in a piecemeal manner. When this was done, the wound was irrigated with saline. Hemostasis was noted to be adequate. At this point, the subcutaneous tissues were reapproximated with interrupted 3-0 Vicryl suture and the skin edges were approximated with 4-0 Nylon vertical mattress suture. Sterile pressure dressing was applied. The patient tolerated the procedure well. Estimated blood loss was less than 25 mL. All sponge, needle and instrument counts were correct. #[id number] [facility]
[2019-05-13 12:22] VITALS: BP 163/67; TEMP 97.5; O2SAT 98
== END 2019-05-13 10:20 | disposition home or self-care (01) ==
LOC: AMB 05:45
PROVIDERS: ATTEND Surgery
DX: D17.1 Benign lipomatous neoplasm of skin and subcutaneous tissue of trunk (principal); R00.1 Bradycardia, unspecified; I25.10 Atherosclerotic heart disease of native coronary artery without angina pectoris; E78.5 Hyperlipidemia, unspecified; E11.9 Type 2 diabetes mellitus without complications; I10 Essential (primary) hypertension; F41.9 Anxiety disorder, unspecified; Z80.3 Family history of malignant neoplasm of breast; Z88.8 Allergy status to other drugs, medicaments and biological substances; Z79.84 Long term (current) use of oral hypoglycemic drugs; Z79.82 Long term (current) use of aspirin; Z79.899 Other long term (current) drug therapy
CPT/HCPCS: 00800; 22902; 36415; 71046; 80053; 81001; 85025; 87086; 88304; 93005; A4216; J0690; J2250; J3010; J3490; J7050; J7120

== ENCOUNTER → 2019-05-16 | Outpatient (CLI) | payer MEDICARE, OTHER | LOC: GMAM 16:53 | PROVIDERS: ATTEND Family Medicine | DX: R11.2 Nausea with vomiting, unspecified (principal) ==

== ENCOUNTER → 2019-08-29 | Outpatient (CLI) | payer MEDICARE, OTHER | LOC: GMAM 10:43 | PROVIDERS: ATTEND Family Medicine | DX: E04.1 Nontoxic single thyroid nodule (principal); E11.9 Type 2 diabetes mellitus without complications; I10 Essential (primary) hypertension; D44.2 Neoplasm of uncertain behavior of parathyroid gland ==

== ENCOUNTER → 2019-09-16 | Outpatient (CLI) | payer MEDICARE, OTHER | LOC: GMAM 14:18 | PROVIDERS: ATTEND Family Medicine | DX: E04.2 Nontoxic multinodular goiter (principal); E55.9 Vitamin D deficiency, unspecified ==

== ENCOUNTER → 2019-09-25 | Outpatient (CLI) | payer MEDICARE, OTHER ==
--- NOTE | 2019-09-26 09:17 | MRI ---
EXAM DESCRIPTION: MRI right shoulder CLINICAL HISTORY: Rotator cuff tear. Rotator cuff syndrome. Previous rotator cuff repair 10 years ago COMPARISON: 11/17/2016 TECHNIQUE: Multiplanar, multisequence MR images of the right shoulder FINDINGS: Postsurgical change supraspinatus tendon repair high-grade recurrent tear of the distal insertion of the posterior supraspinatus tendon along the posterior margin of the insertional anchor sagittal T2 series 701 image 5, coronal series 501 image 8. Attenuation with fluid signal intensity in and around the tendon. Small-volume subacromial subdeltoid bursal fluid. Similar appearance on the previous study. Muscle volume mildly decreased with grade 1 fatty infiltration Infraspinatus tendinosis with low-grade interstitial fissuring at the insertion. Muscle volume mildly decreased with grade 1 fatty infiltration. Teres minor tendon intact. Normal muscle volume with grade 1 fatty infiltration. Subscapularis tendinosis. Interstitial partial tear of the upper tendon, mediolateral extent 1.2 cm. Muscle volume normal with grade 1 fatty infiltration Long head biceps tendon subluxation over the lesser tuberosity along the lower bicipital groove with extension into the interstitial tear of the subscapularis superiorly. Slight progression of the interstitial tear and greater degree of subluxation of the biceps tendon into the tear than on the previous study Labral anchor intact. No labral detachment. No high-grade glenohumeral chondrosis or chronic osteochondral lesion. IMPRESSION: High-grade partial tear of the supraspinatus tendon along the posterior insertion. Similar appearance on previous study Interstitial insertional partial tear of the upper subscapularis tendon with associated long head biceps subluxation. Slight progression since previous study Electronically signed by: Yusef eBdoya MD 09/26/2019 9:15 AM [facility]
== END | disposition home or self-care (01) ==
LOC: MRI 11:00
PROVIDERS: ATTEND Orthopaedic Surgery
DX: M75.101 Unspecified rotator cuff tear or rupture of right shoulder, not specified as traumatic (principal)

== ENCOUNTER → 2019-09-26 | Outpatient (CLI) | payer MEDICARE, OTHER ==
--- NOTE | 2019-09-27 09:01 | MRI ---
Study: MRI of the Left Shoulder. Indication: ROTATOR CUFF SYNDROME Technique: Multiplanar, multi sequence MRI of the left shoulder was obtained without intravenous contrast. Comparison: None Findings: Mild to moderately motion degraded examination. Moderate AC joint osteoarthritis. Type I acromion. High-grade supraspinatus and infraspinatus tendinosis with irregular high-grade bursal/interstitial tearing throughout the supraspinatus tendon insertion. No full-thickness rupture or tendon retraction. Subscapularis tendinosis. Teres minor tendon intact. Mild atrophy and grade 2 fatty infiltration rotator cuff musculature. Long head biceps tendon intact. Circumferential labral truncation and degeneration. Mild to moderate glenohumeral arthritis with a small joint effusion. No acute fracture. Fluid distention of the subcoracoid bursa within internal 6 mm body at its inferolateral margin. Impression: High-grade supraspinatus and infraspinatus tendinosis with irregular high grade bursal/interstitial tearing throughout the supraspinatus tendon insertion. Subscapularis tendinosis. Mild atrophy and grade 2 fatty infiltration rotator cuff musculature. Irregular truncation and degeneration. Mild to moderate glenohumeral joint osteoarthritis with small joint effusion. Moderate AC joint osteoarthritis. Fluid distention subcoracoid bursa with internal loose body. Electronically signed by: Abraham Landeros MD 09/27/2019 8:59 AM FINISH PRODUCTION MANAGER
== END ==
LOC: MRI 12:54
PROVIDERS: ATTEND Orthopaedic Surgery
DX: M75.102 Unspecified rotator cuff tear or rupture of left shoulder, not specified as traumatic (principal); M75.32 Calcific tendinitis of left shoulder; M19.012 Primary osteoarthritis, left shoulder; M24.012 Loose body in left shoulder

== ENCOUNTER → 2020-05-01 | Outpatient (CLI) | payer MEDICARE, OTHER ==
--- NOTE | 2020-05-01 13:54 | RAD ---
EXAM DESCRIPTION: Lumbar Spine 3 Views CLINICAL HISTORY: 79 years Female, RADICULOPATHY COMPARISON: MRI March 29, 2018 FINDINGS: 2 views of the lumbar spine show osteopenia the osseous structures. Vertebral body heights are maintained. Mild curvature of the mid lumbar spine with convexity towards the right. Mild to moderate disc space narrowing asymmetric towards the left is seen at L2-3 and L3-4 with moderate diffuse disc space narrowing at L4-5. Facet hypertrophic and degenerative changes at L4-5 and L5-S1 are seen. Calcifications of the arterial vasculature are seen. Surgical clips from cholecystectomy. Partly identified leads from epicardial pacer are seen in the lower chest with sternotomy wires identified. 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 Facet arthropathy at the lowest 2 levels is seen. Electronically signed by: Jaspal Manzo MD 05/01/2020 1:52 PM CDT
--- NOTE | 2020-05-01 14:32 | RAD ---
EXAM DESCRIPTION: Lumbar Spine,Flex/Ext CLINICAL HISTORY: 79 years Female, RADICULOPATHY COMPARISON: May 01, 2020 FINDINGS: Standing lateral flexion and extension views of the lumbar spine shows diffuse osteopenia the osseous structures. Mild disc space narrowing and trace anterolisthesis at L3 on L4 is seen. Limited range of motion with flexion and extension. No instability is identified. Facet hypertrophic and degenerative changes are suggested from L4 through S1. Postsurgical changes from CABG are seen with epicardial leads are identified. IMPRESSION: Limited range of motion with flexion and extension. Trace anterolisthesis of L3 on L4 without significant change on flexion or extension images. Electronically signed by: Jaspal Manzo MD 05/01/2020 2:30 PM CDT
== END ==
LOC: RAD 11:05
PROVIDERS: ATTEND Family Medicine Sports Medicine
DX: M51.36 Other intervertebral disc degeneration, lumbar region (principal); M54.17 Radiculopathy, lumbosacral region; M12.9 Arthropathy, unspecified; M41.9 Scoliosis, unspecified

== ENCOUNTER → 2020-05-11 | Outpatient (CLI) | payer MEDICARE, OTHER ==
--- NOTE | 2020-05-11 14:40 | MRI ---
EXAM DESCRIPTION: Lumbar Spine w/o Contrast CLINICAL HISTORY: 79 years Female, RADICULOPATHTY LUMBOSACRAL REGION COMPARISON: Radiographs the lumbar spine dated 05/01/2020. TECHNIQUE: Multiplanar multiecho imaging of the lumbar spine was performed without intravenous contrast administration. FINDINGS: T2 hyperintense lesions are identified in L2, L3 and L4 vertebral bodies most likely representing hemangiomas. Mild superior endplate compression of L3 vertebral body with approximately 10% loss of height. Remainder of the vertebral body heights are well-maintained with no acute compression deformity. Multilevel intervertebral disc space narrowing is noted. The conus medullaris terminates at L1 vertebral body. The visualized spinal cord demonstrates no signal abnormality. L1-L2: No central canal stenosis. Bilateral facet arthropathy with no significant neural foraminal narrowing. L2-L3: 2 mm anterolisthesis of L2 over L3. 6.5 mm posterior disc osteophyte complex with resultant severe central canal stenosis. The thecal sac measures 6 mm. Bilateral facet arthropathy and ligamentum flavum hypertrophy is noted with resultant moderate bilateral neural foraminal narrowing. L3-L4: 4 mm posterior disc bulge, bilateral ligament of flavum hypertrophy and facet arthropathy with resultant mild to moderate central canal stenosis and moderate bilateral neural foraminal narrowing. L4-L5: 6 mm posterior disc bulge, ligamentum flavum hypertrophy and facet arthropathy with resultant moderate central canal stenosis. The thecal sac measures 8 mm. Mild to moderate right and moderate left neural foraminal narrowing is noted secondary to facet arthropathy. L5-S1: 2 mm posterior disc bulge and facet arthropathy with no significant central canal stenosis. Moderate bilateral neural foraminal narrowing is noted. The visualized prevertebral and paravertebral soft tissues appear unremarkable. IMPRESSION: 1. Mild acute compression fracture of L3 vertebral body with 10% loss of height. 2. Multiple T2 hyperintense lesions are identified throughout the lumbar spine, more probably representing hemangiomas. Bone scan can be performed for further evaluation if clinically concerned. 3. Multilevel degenerative disc disease and facet arthropathy is noted throughout the lumbar spine with changes worse at L2-L3 level as described above. Electronically signed by: Neelam Puri MD 05/11/2020 2:38 PM CDT
== END ==
LOC: MRI 13:42
PROVIDERS: ATTEND Family Medicine Sports Medicine
DX: M54.17 Radiculopathy, lumbosacral region (principal); M48.56XA Collapsed vertebra, not elsewhere classified, lumbar region, initial encounter for fracture; M51.36 Other intervertebral disc degeneration, lumbar region; M46.96 Unspecified inflammatory spondylopathy, lumbar region; M51.84 Other intervertebral disc disorders, thoracic region

== ENCOUNTER → 2020-10-27 | Outpatient (CLI) | payer MEDICARE, OTHER ==
--- NOTE | 2020-10-28 09:19 | US ---
US THYROID CLINICAL STATEMENT:80 years Female GOITER. No palpable mass, no prior thyroid surgery or therapy. No medications. COMPARISON: None TECHNIQUE: Transcutaneous scanning, grayscale and Doppler modes. FINDINGS: Size right thyroid lobe: 3.5 x 1.9 x 1.6 cm Size left thyroid lobe: 4.1 x 2.0 x 1.4 cm Size isthmus: 0.26 cm Estimated total number of nodules greater than or equal to 1 cm: 4. No calcifications, no fluid collection, no distinct cysts. Nodule 1: Size: 2.1 x 1.4 x 1.1 cm. 2.1 x 1.3 x 1.2 on the prior study. Stable appearance. Location: Right Mid Composition: solid or almost completely solid: 2 points Echogenicity: hypoechoic: 2 points Shape: wider than tall: 0 points Margins: smooth: 0 points. Minimal vascularity of the margin. Echogenic foci: none: 0 points ACR Total Points: 4; ACR TI-RADS risk category: TR4 - moderately suspicious nodule. Nodule 2: Size: 1.0 x 0.8 X 0.5 cm. 0.7 x 0.6 x 0.4 on the prior study. Stable appearance. Location: Right Lower Composition: solid or almost completely solid: 2 points Echogenicity: hypoechoic: 2 points Shape: wider than tall: 0 points Margins: smooth: 0 points. Minimal vascularity. Echogenic foci: none: 0 points ACR Total Points: 4; ACR TI-RADS risk category: TR4 - moderately suspicious nodule. Nodule 3: Size: 1.1 x 0.8 x 0.7 cm. Nodule 2 on the prior study. Stable size and appearance. Location: Left Upper Composition: solid or almost completely solid: 2 points Echogenicity: hypoechoic: 2 points Shape: wider than tall: 0 points Margins: smooth: 0 points Echogenic foci: none: 0 points ACR Total Points: 4; ACR TI-RADS risk category: TR4 - moderately suspicious nodule. Nodule 4: Size: 1.1 x 0.8 x 0.6 cm. Nodule 3 on the prior study. Stable size or slightly smaller. Stable appearance. Location: Left Lower Composition: solid or almost completely solid: 2 points Echogenicity: hypoechoic: 2 points Shape: wider than tall: 0 points Margins: smooth: 0 points Echogenic foci: none: 0 points Nodule 4 on the prior study appears partially solid and partially cystic on the current study. No change in size. ACR Total Points: 4; ACR TI-RADS risk category: TR4 - moderately suspicious nodule. No dominant soft tissue mass, no distinct cyst, no fluid collection, and no large calcifications in the surrounding soft tissues. IMPRESSION: 1. Nodule 1: ACR TI-RADS 2017 Category TR4. Recommend: Ultrasound guided fine-needle aspiration/sampling; Alternatively follow-up ultrasound in 1 year, since stable in size and appearance. Recommendations based upon [facility] Best Practice recommendations and ACR TI-RADS 2017 guidelines. Please see below*. 2. Nodule 2: ACR TI-RADS 2017 Category TR4. Enlarging since the prior study. Recommend: Follow-up ultrasound in 1 year. 3. Nodule 3: ACR TI-RADS 2017 Category TR4. Recommend: Follow-up ultrasound in 1 year. 4. Nodule 4: ACR TI-RADS 2017 Category TR4. Recommend: Follow-up ultrasound in 1 year. Tissues surrounding the thyroid gland unremarkable. *ACR TI-RADS 2017 Recommendations for imaging follow-up of nodules (baseline study): TR1: No FNA or follow up TR2: No FNA or follow up TR3: FNA if >/= 2.5 cm, follow up if 1.5 - 2.4 cm in 1, 3, and 5 years TR4: FNA if >/= 1.5 cm, follow up if 1.0 - 1.4 cm in 1, 2, 3, and 5 years TR5: FNA if >/= 1.0 cm, follow up if 0.5 - 0.9 cm every year for 5 years ACR TI-RADS recommends that no more than two nodules with the highest ACR TI-RADS total point should be biopsied and no more than four nodules should be followed. These recommendations do not apply to patients with increased risk for thyroid cancer or patients with symptomatic thyroid disease. Electronically signed by: Dilip Gamble MD 10/28/2020 9:18 AM [employer]
== END ==
LOC: US 11:14
PROVIDERS: ATTEND Family Medicine
DX: E04.2 Nontoxic multinodular goiter (principal)

== ENCOUNTER → 2020-11-03 | Outpatient (CLI) | payer MEDICARE, OTHER | LOC: GMAM 12:03 | PROVIDERS: ATTEND Family Medicine | DX: R41.9 Unspecified symptoms and signs involving cognitive functions and awareness (principal) ==

== ENCOUNTER → 2020-11-11 | Outpatient (CLI) | payer MEDICARE, OTHER | LOC: GMAM 15:53 | PROVIDERS: ATTEND Family Medicine | DX: R23.3 Spontaneous ecchymoses (principal); Z83.2 Family history of diseases of the blood and blood-forming organs and certain disorders involving the immune mechanism ==

== ENCOUNTER → 2020-11-13 | Outpatient (CLI) | payer MEDICARE, OTHER ==
--- NOTE | 2020-11-16 08:36 | MRI ---
EXAM DESCRIPTION: Brain w/o Contrast: MRI. CLINICAL HISTORY: UNSPEC SYMPTOMS AND SIGNS OF COGNITIVE FUNCTION COMPARISON: None. TECHNIQUE: Multiplanar, high-field MRI unit, multiple diffusion sequences, multiple conventional sequences without contrast. Technically difficult study due to patient motion on some sequences. FINDINGS: Bilateral multifocal FLAIR and T2-weighted signal in the subcortical white matter in the bilateral centrum semiovale. Confluent hyperintense signal abutting the posterior horns of the lateral ventricles. Small subcortical hyperintense lesions in the temporal lobe. No hemorrhage, no cerebral edema, no midline shift.. Normal signal in the bilateral basal ganglia. Normal signal in the brainstem and cerebellar hemispheres.. Concordance of the diffusion and non-diffusion sequences with no diffusion restriction. Cortical sulci, ventricles, and other CSF spaces, and the subdural spaces are normally configured for patient's age. No effacement or displacement. No midline shift. No extra-axial hemorrhage. Normal flow signal void in the major vessels of the [place], and the venous sinuses. IACs are symmetric bilaterally. No fluid in the bilateral mastoid air cells. No mass effect in the bilateral cerebellopontine angles. Pituitary gland occupies most of the sella. Base of the cerebellar tonsils is at the level of the foramen magnum. Paranasal sinuses are negative.. The bony calvarium is intact. IMPRESSION: Relatively symmetric periventricular white matter and subcortical white matter lesions bilaterally which are most likely related to cerebral microvascular disease and aging. No hemorrhage, no mass effect, no midline shift, no cerebral edema. No diffusion restriction or other diffusion abnormalities. Electronically signed by: Dilip Gamble MD 11/16/2020 8:34 AM [facility]
== END ==
LOC: MRI 10:05
PROVIDERS: ATTEND Family Medicine
DX: R41.9 Unspecified symptoms and signs involving cognitive functions and awareness (principal); R90.82 White matter disease, unspecified

== ENCOUNTER 2021-01-04 05:33 | Day surgery (SDC) | payer MEDICARE, OTHER ==
[2021-01-04] MEDS ORDERED: LIDOCAINE 1% 10 ML VIAL INJ ONE (06:57)
[2021-01-04] MEDS ORDERED: BETAMETHASONE ACETATE/BETAMETH 6 MG/ML VIAL IM ONE (06:58)
[2021-01-04] MEDS ORDERED: DEXAMETHASONE INJ 10 MG/ML VIAL ONE (06:58)
[2021-01-04] MEDS: BUPIVACAINE 0.5% 30 ML VIAL INJ ONE ×2 (08:27→08:28)
== END 2021-01-04 08:53 | disposition home or self-care (01) ==
LOC: AMB 05:33
PROVIDERS: ATTEND Family Medicine Sports Medicine
DX: M54.5 Low back pain (principal); M47.896 Other spondylosis, lumbar region; E78.5 Hyperlipidemia, unspecified; I10 Essential (primary) hypertension; J44.9 Chronic obstructive pulmonary disease, unspecified; K21.9 Gastro-esophageal reflux disease without esophagitis; E11.9 Type 2 diabetes mellitus without complications; K50.90 Crohn's disease, unspecified, without complications; Z90.710 Acquired absence of both cervix and uterus; Z82.49 Family history of ischemic heart disease and other diseases of the circulatory system; Z80.3 Family history of malignant neoplasm of breast; Z82.3 Family history of stroke; Z95.1 Presence of aortocoronary bypass graft; Z79.82 Long term (current) use of aspirin; Z79.84 Long term (current) use of oral hypoglycemic drugs; Z79.899 Other long term (current) drug therapy